=== PATIENT | female | born 2000 | race Caucasian/White ===

== ENCOUNTER 2024-11-20 15:06 | Outpatient (CLI) | payer OTHER | END 2024-11-20 15:07 | disposition home or self-care (01) | LOC: CSHULT 15:06 | PROVIDERS: ATTEND Obstetrics & Gynecology | DX: D39.11 Neoplasm of uncertain behavior of right ovary (principal); Z90.721 Acquired absence of ovaries, unilateral | CPT/HCPCS: 76856; 93976 ==